=== PATIENT | male | born 1965 | race Caucasian/White ===

== ENCOUNTER 2017-06-19 09:31 | Day surgery (SDC) | payer BC ==
[2017-06-19] MEDS ORDERED: NS 1,000 ML IV (10:30)
[2017-06-19] MEDS ORDERED: PROPOFOL 200 MG/20 ML VIAL As Ordered ×2 (10:48)
== END 2017-06-19 12:01 | disposition home or self-care (01) ==
LOC: M OPP 09:31
DX: Z12.11 Encounter for screening for malignant neoplasm of colon (principal); Z86.010 Personal history of colon polyps; D12.5 Benign neoplasm of sigmoid colon; D12.3 Benign neoplasm of transverse colon; D12.0 Benign neoplasm of cecum; K64.8 Other hemorrhoids; I10 Essential (primary) hypertension; M19.90 Unspecified osteoarthritis, unspecified site; Z91.010 Allergy to peanuts; Z79.899 Other long term (current) drug therapy; Z80.8 Family history of malignant neoplasm of other organs or systems; Z80.1 Family history of malignant neoplasm of trachea, bronchus and lung; Z80.52 Family history of malignant neoplasm of bladder
CPT/HCPCS: 45385

== ENCOUNTER → 2020-09-04 | Outpatient (CLI) | payer BC ==
[~2020-09-04] MED LIST: ATOR1TAB21; LISI10TA15; LISI10TA15 PO; LISI10TA22 PO; PRIL40CA PO
== END ==
LOC: M LABSMTC 09:35
PROVIDERS: ATTEND Anesthesiology
DX: Z01.812 Encounter for preprocedural laboratory examination (principal); Z20.828 Contact with and (suspected) exposure to other viral communicable diseases

== ENCOUNTER 2020-09-08 11:46 | Day surgery (SDC) | payer BC ==
[~2020-09-08] VITALS: Ht 172.7 cm; Wt 112.5 kg
[~2020-09-08 11:46] MED LIST changes: +NS 1,000 ML IV ONE
[2020-09-08] MEDS ORDERED: LIDOCAINE 2% 100MG/5ML SDV (FOR ANES.) As Ordered ONE (12:51)
[2020-09-08] MEDS ORDERED: propofoL 200 MG/20 ML VIAL As Ordered ONE (12:51)
--- NOTE | 2020-09-08 13:17 | ROOR ---
Patient Name: Yandel Gómez Procedure Date: 09/08/2020 12:53 PM Date of : 1965 Age: 55 Room: [facility] Gender: Male Note Status: Finalized Procedure: Colonoscopy Indications: High risk colon cancer surveillance: Personal history of colonic polyps, Last colonoscopy: June 2017 Providers: Eladio Horton MD Referring MD: ISRAEL PALMER MD Requesting Provider: Medicines: Monitored Anesthesia Care Complications: No immediate complications. Procedure: Pre-Anesthesia Assessment: - The heart rate, respiratory rate, oxygen saturations, blood pressure, adequacy of pulmonary ventilation, and response to care were monitored throughout the procedure. The Colonoscope was introduced through the anus and advanced to the terminal ileum, with identification of the appendiceal orifice and IC valve. The colonoscopy was performed without difficulty. The patient tolerated the procedure well. The quality of the bowel preparation was fair. Findings: The perianal and digital rectal examinations were normal. Retroflexion in the right colon was performed. The colon appeared normal. Impression: - Preparation of the colon was fair. - The entire examined colon is normal. - No specimens collected. Recommendation: - Repeat colonoscopy in 5 years for surveillance. Procedure Code(s): --- Professional --- 39387, Colonoscopy, flexible; diagnostic, including collection of specimen(s) by brushing or washing, when performed (separate procedure) Diagnosis Code(s): --- Professional --- Z86.010, Personal history of colonic polyps CPT copyright 2019 [employer]. All rights reserved. The codes documented in this report are preliminary and upon mine patrol review may be revised to meet current compliance requirements. Eladio Horton MD Eladio Horton MD 09/08/2020 1:17:09 PM Electronically signed by Eladio Horton MD Number of Addenda: 0 Note Initiated On: 09/08/2020 12:53 PM Estimated Blood Loss: Estimated blood loss: none.
[2020-09-08 13:41] VITALS: BP 131/86
== END 2020-09-08 13:41 | disposition home or self-care (01) ==
LOC: M OPP 11:46
PROVIDERS: ATTEND Internal Medicine Gastroenterology
DX: Z12.11 Encounter for screening for malignant neoplasm of colon (principal); Z86.010 Personal history of colon polyps; Z79.899 Other long term (current) drug therapy; Z91.018 Allergy to other foods; Z80.0 Family history of malignant neoplasm of digestive organs; Z80.1 Family history of malignant neoplasm of trachea, bronchus and lung; Z80.52 Family history of malignant neoplasm of bladder

== ENCOUNTER 2023-02-04 01:26 | Inpatient (IN) | payer BC ==
[2023-02-04] VITALS (17 sets, daily range): BP systolic 113–182; BP diastolic 72–111; TEMP 97.1–102.6; O2SAT 91–98
[~2023-02-04] VITALS: Ht 172.7 cm; Wt 109.6 kg
[~2023-02-04 01:26] MED LIST changes: -LISI10TA15; -LISI10TA15 PO; +LISI10TA24; +LISI10TA24 PO; -NS 1,000 ML IV ONE
[2023-02-04 02:06] LABS: BASO % 0.2 % (0.0-1.0); HEMATOCRIT 51.3 % (42.0-52.0); HEMOGLOBIN 18.3 g/dl (13.5-17.5); LYMPH # 0.4 10^3/uL (1.5-5.0); LYMPH % 3.3 % (24.0-44.0); MEAN CORPUSCULAR HEMOGLOBIN 30.8 pg (27.0-33.0); MEAN CORPUSCULAR HGB CONC 35.7 g/dl (32.0-36.5); MEAN CORPUSCULAR VOLUME 86.2 fl (80.0-96.0); MONO # 0.1 10^3/uL (0.0-0.8); MONO % 0.9 % (2.0-8.0); NEUTROPHILS # 11.2 10^3/uL (1.5-8.5); NEUTROPHILS % 95.1 % (36.0-66.0); PLATELET COUNT, AUTOMATED 178 10^3/uL (150-450); RED BLOOD COUNT 5.95 10^6/uL (4.30-6.10); WHITE BLOOD COUNT 11.8 10^3/uL (4.0-10.0)
[2023-02-04 02:21] LABS: INR 1.31; PROTHROMBIN TIME 15.9 SECONDS (12.5-14.5)
[2023-02-04 02:29] LABS: ALBUMIN 3.6 G/DL (3.2-5.2); ALKALINE PHOSPHATASE 83 U/L (46-116); ALT/SGPT 42 U/L (7.0-40); AST/SGOT 29 U/L (<34); BILIRUBIN,DIRECT 0.8 MG/DL (<0.4); BILIRUBIN,TOTAL 1.7 MG/DL (0.3-1.2); BLOOD UREA NITROGEN 15 MG/DL (9-23); CALCIUM LEVEL 8.9 MG/DL (8.5-10.1); CARBON DIOXIDE LEVEL 18 MMOL/L (20-31); CHLORIDE LEVEL 102 MMOL/L (98-107); GLOMERULAR FILTRATION RATE > 60.0 (>56); GLUCOSE, FASTING 161 MG/DL (60-100); POTASSIUM SERUM 3.2 MMOL/L (3.5-5.1); SODIUM LEVEL 136 MMOL/L (136-145); TOTAL PROTEIN 6.4 G/DL (5.7-8.2)
[2023-02-04] MEDS ORDERED: PIPERACILLIN/TAZOBACTAM SOD 4.5 GM in D5W MINI-BAG PLUS 50 ML IV ONE (02:30)
[2023-02-04] MEDS ORDERED: ACETAMINOPHEN TAB 650MG DOSE (2X325MG) PO ONE (02:30)
[2023-02-04] MEDS ORDERED: NS 1,000 ML IV ONE ×2 (02:30→16:40)
[2023-02-04] MEDS ORDERED: POTASSIUM CHLORIDE 10MEQ SR TABLET PO ONE ×2 (02:35→10:00)
[2023-02-04] MEDS ORDERED: NS IV ONE (02:35)
[2023-02-04] MEDS ORDERED: ISOVUE-370 76% 100ML VIAL As Ordered ONE (02:49)
[2023-02-04 02:57] LABS: APPEARANCE, URINE CLEAR (CLEAR); BACTERIA, URINE AUTO NEGATIVE (NEGATIVE); BILIRUBIN, URINE AUTO NEGATIVE (NEGATIVE); BLOOD, URINE BLOOD NEGATIVE (NEGATIVE); COLOR, URINE YELLOW (YELLOW); GLUCOSE, URINE (UA) AUTO 3+ mg/dL (NEGATIVE); KETONE, URINE AUTO TRACE mg/dL (NEGATIVE); LEUKOCYTE ESTERASE, URINE AUTO NEGATIVE (NEGATIVE); NITRITE, URINE AUTO NEGATIVE (NEGATIVE); PROTEIN, URINE AUTO NEGATIVE (NEGATIVE); RBC, URINE AUTO 0 /HPF (0-3); SPECIFIC GRAVITY URINE AUTO 1.027 (1.002-1.035); SQUAMOUS EPITHELIAL CELL UR AU 0 /HPF (0-6); UROBILINOGEN, URINE AUTO 0.2 mg/dL (0.0-2.0); WBC, URINE AUTO 1 /HPF (0-3)
[2023-02-04] MEDS ORDERED: CIPROFLOXACIN 400 MG in IV 1 EA IV ONE (03:45)
[2023-02-04] MEDS ORDERED: metroNIDAZOLE 500 MG in IV 1 EA IV ONE (03:45)
[2023-02-04] MEDS ORDERED: NS 1,000 ML IV SCH (04:50)
[2023-02-04] MEDS ORDERED: DEXTROSE 50% 50ML SYRINGE IV PRN (05:15)
[2023-02-04] MEDS ORDERED: GLUCAGON INJ 1MG VIAL SC PRN (05:15)
[2023-02-04] MEDS ORDERED: ONDANSETRON 4MG 2ML VIAL IV PRN ×2 (05:15→19:35)
[2023-02-04] MEDS ORDERED: ACETAMINOPHEN 650MG SUPP PR PRN (05:15)
[2023-02-04] MEDS ORDERED: GLUCOSE 4GM CHEW TABLET PO PRN (05:15)
[2023-02-04] MEDS ORDERED: ONDA-84 PO (05:37)
[2023-02-04] MEDS ORDERED: OMEP-173 PO (05:37)
[2023-02-04] MEDS ORDERED: JARD1TAB3 PO (05:37)
[2023-02-04] MEDS ORDERED: LISI10TA24 PO (05:37)
[2023-02-04] MEDS ORDERED: ATOR1TAB21 PO (05:37)
[2023-02-04] MEDS ORDERED: METF500T13 PO (05:37)
[2023-02-04] MEDS ORDERED: AMLO1TAB24 PO (05:37)
[2023-02-04] MEDS ORDERED: HOME MED LIST COMPLETE! XX SCH (05:40)
[2023-02-04] MEDS ORDERED: INSULIN LISPRO (NovoLOG) PER UNIT SC SCH (06:00)
[2023-02-04] MEDS: NS 1,000 ML IV SCH ×3 (06:17→23:16)
[2023-02-04 06:45] LABS: MAGNESIUM LEVEL 1.6 MG/DL (1.8-2.4)
[2023-02-04 07:07] LABS: ALKALINE PHOSPHATASE 64 U/L (46-116); ALT/SGPT 37 U/L (7.0-40); AST/SGOT 32 U/L (<34); BILIRUBIN,TOTAL 1.9 MG/DL (0.3-1.2); BLOOD UREA NITROGEN 16 MG/DL (9-23); CALCIUM LEVEL 8.3 MG/DL (8.5-10.1); CARBON DIOXIDE LEVEL 21 MMOL/L (20-31); CHLORIDE LEVEL 102 MMOL/L (98-107); CREATININE FOR GFR 1.14 MG/DL (0.70-1.30); GLOMERULAR FILTRATION RATE > 60.0 (>56); GLUCOSE, FASTING 160 MG/DL (60-100); POTASSIUM SERUM 3.3 MMOL/L (3.5-5.1); SODIUM LEVEL 136 MMOL/L (136-145); TOTAL PROTEIN 5.5 G/DL (5.7-8.2)
[2023-02-04 07:55] LABS: MEAN CORPUSCULAR HEMOGLOBIN 30.9 pg (27.0-33.0); MEAN CORPUSCULAR HGB CONC 35.1 g/dl (32.0-36.5); PLATELET COUNT, AUTOMATED 150 10^3/uL (150-450); RED BLOOD COUNT 5.24 10^6/uL (4.30-6.10); WHITE BLOOD COUNT 20.2 10^3/uL (4.0-10.0)
[2023-02-04 07:56] LABS: HEMATOCRIT 46.1 % (42.0-52.0); HEMOGLOBIN 16.2 g/dl (13.5-17.5)
[2023-02-04] MEDS: MAG SULF 1GM/100ML (MAG RUN) 1 GM in IV 1 EA IV SCH ×2 (08:17→09:21)
[2023-02-04] MEDS ORDERED: PIPERACILLIN/TAZOBACTAM SOD 3.375 GM in D5W MINI-BAG PLUS 50 ML IV SCH (11:00)
[2023-02-04] MEDS: amLODIPine 5 MG TAB PO SCH (11:13)
[2023-02-04] MEDS: INSULIN LISPRO (NovoLOG) PER UNIT SC SCH ×3 (11:54→20:44)
[2023-02-04] MEDS: ACETAMINOPHEN TAB 650MG DOSE (2X325MG) PO PRN (12:19)
[2023-02-04] MEDS ORDERED: HYDROMORPHONE HCL 0.5 MG/ 0.5 ML SYRINGE IV PRN ×3 (12:25→19:35)
[2023-02-04] MEDS ORDERED: metroNIDAZOLE 500 MG in IV 1 EA IV SCH (13:00)
[2023-02-04] MEDS ORDERED: **hydrALAZINE HCL** 25 MG TAB PO PRN (14:45)
[2023-02-04] MEDS ORDERED: ACETAMINOPHEN *IV* 1,000 MG in IV 1 EA IV STA (15:14)
[2023-02-04] MEDS ORDERED: CIPROFLOXACIN 400 MG in IV 1 EA IV SCH (16:00)
[2023-02-04 16:17] LABS: BLOOD UREA NITROGEN 15 MG/DL (9-23); CALCIUM LEVEL 8.4 MG/DL (8.5-10.1); CARBON DIOXIDE LEVEL 19 MMOL/L (20-31); CHLORIDE LEVEL 103 MMOL/L (98-107); CREATININE FOR GFR 0.95 MG/DL (0.70-1.30); GLOMERULAR FILTRATION RATE > 60.0 (>56); GLUCOSE, FASTING 127 MG/DL (60-100); POTASSIUM SERUM 3.9 MMOL/L (3.5-5.1); SODIUM LEVEL 136 MMOL/L (136-145)
[2023-02-04] MEDS ORDERED: LR 1,000 ML IV ONE (16:45)
[2023-02-04 17:08] LABS: ALBUMIN 3.1 G/DL (3.2-5.2); ALKALINE PHOSPHATASE 74 U/L (46-116); ALT/SGPT 72 U/L (7.0-40); AST/SGOT 64 U/L (<34); BILIRUBIN,DIRECT 0.8 MG/DL (<0.4); BILIRUBIN,TOTAL 1.6 MG/DL (0.3-1.2)
[2023-02-04] MEDS: PIPERACILLIN/TAZOBACTAM SOD 4.5 GM in D5W MINI-BAG PLUS 50 ML IV SCH ×2 (17:18→22:40)
[2023-02-04] MEDS ORDERED: INDOCYANINE GREEN 25MG VIAL (IC-GREEN) As Ordered ONE (19:20)
[2023-02-04] MEDS ORDERED: INDOCYANINE GREEN 25MG VIAL (IC-GREEN) ONE (19:20)
[2023-02-04] MEDS ORDERED: LR 1,000 ML IV SCH (19:35)
[2023-02-04] MEDS ORDERED: INSULIN LISPRO (NovoLOG) PER UNIT SC PRN (19:35)
[2023-02-04] MEDS ORDERED: fentaNYL 100 MCG/2 ML INJECTION IV PRN (19:35)
[2023-02-04] MEDS ORDERED: ENOXAPARIN 40MG/0.4ML SYRINGE (J1650 PER 10MG) SC SCH (21:00)
[2023-02-04] MEDS ORDERED: SUGAMMADEX SODIUM 500 MG/5 ML VIAL (BRIDION) As Ordered ONE (21:14)
[2023-02-04] MEDS ORDERED: ONDANSETRON 4MG 2ML VIAL As Ordered ONE (21:14)
[2023-02-04] MEDS ORDERED: KETOROLAC 60MG 2ML VIAL As Ordered ONE (21:14)
[2023-02-04] MEDS ORDERED: fentaNYL 250 MCG/5 ML INJECTION As Ordered ONE (21:14)
[2023-02-04] MEDS ORDERED: LIDOCAINE 2% 100MG/5ML SDV (FOR ANES.) As Ordered ONE (21:14)
[2023-02-04] MEDS ORDERED: ROCURONIUM BROMIDE 50MG/5ML VIAL As Ordered ONE (21:14)
[2023-02-04] MEDS ORDERED: propofoL 200 MG/20 ML VIAL As Ordered ONE (21:14)
[2023-02-04] MEDS ORDERED: PHENYLephrine 500MCG 5ML (100MCG/ML) SYRINGE As Ordered ONE ×2 (21:14→21:17)
[2023-02-04] MEDS ORDERED: MIDAZOLAM INJ 2MG/2ML VIAL As Ordered ONE (21:14)
[2023-02-04] MEDS ORDERED: ACETAMINOPHEN 1000MG 100ML IV BAG As Ordered ONE (21:14)
[2023-02-05] VITALS (8 sets, daily range): BP systolic 128–160; BP diastolic 75–93; TEMP 97.1–99.6; O2SAT 94–100
[2023-02-05] MEDS: PIPERACILLIN/TAZOBACTAM SOD 4.5 GM in D5W MINI-BAG PLUS 50 ML IV SCH ×4 (04:34→22:06)
[2023-02-05 05:48] LABS: HEMATOCRIT 47.3 % (42.0-52.0); HEMOGLOBIN 15.9 g/dl (13.5-17.5); MEAN CORPUSCULAR HEMOGLOBIN 30.1 pg (27.0-33.0); MEAN CORPUSCULAR HGB CONC 33.6 g/dl (32.0-36.5); MEAN CORPUSCULAR VOLUME 89.4 fl (80.0-96.0); PLATELET COUNT, AUTOMATED 129 10^3/uL (150-450); RED BLOOD COUNT 5.29 10^6/uL (4.30-6.10); WHITE BLOOD COUNT 12.1 10^3/uL (4.0-10.0)
[2023-02-05] MEDS: INSULIN LISPRO (NovoLOG) PER UNIT SC SCH ×4 (07:30→20:13)
[2023-02-05 07:56] LABS: ALBUMIN 2.6 G/DL (3.2-5.2); ALKALINE PHOSPHATASE 69 U/L (46-116); ALT/SGPT 65 U/L (7.0-40); AST/SGOT 48 U/L (<34); BLOOD UREA NITROGEN 18 MG/DL (9-23); CARBON DIOXIDE LEVEL 17 MMOL/L (20-31); CHLORIDE LEVEL 108 MMOL/L (98-107); CREATININE FOR GFR 0.75 MG/DL (0.70-1.30); GLOMERULAR FILTRATION RATE > 60.0 (>56); GLUCOSE, FASTING 127 MG/DL (60-100); POTASSIUM SERUM 4.2 MMOL/L (3.5-5.1); SODIUM LEVEL 140 MMOL/L (136-145); TOTAL PROTEIN 5.4 G/DL (5.7-8.2)
[2023-02-05] MEDS: amLODIPine 5 MG TAB PO SCH (08:18)
[2023-02-05] MEDS: NS 1,000 ML IV SCH (11:22)
[2023-02-05] MEDS: ENOXAPARIN 40MG/0.4ML SYRINGE (J1650 PER 10MG) SC SCH (20:13)
[2023-02-05] MEDS: ACETAMINOPHEN TAB 650MG DOSE (2X325MG) PO PRN (22:06)
[2023-02-06] VITALS (7 sets, daily range): BP systolic 130–170; BP diastolic 72–91; TEMP 98–100.4; O2SAT 93–98
[2023-02-06] MEDS: PIPERACILLIN/TAZOBACTAM SOD 4.5 GM in D5W MINI-BAG PLUS 50 ML IV SCH ×4 (04:10→23:06)
[2023-02-06 04:37] LABS: HEMOGLOBIN 15.1 g/dl (13.5-17.5); MEAN CORPUSCULAR HEMOGLOBIN 31.1 pg (27.0-33.0); MEAN CORPUSCULAR HGB CONC 35.1 g/dl (32.0-36.5); MEAN CORPUSCULAR VOLUME 88.5 fl (80.0-96.0); PLATELET COUNT, AUTOMATED 142 10^3/uL (150-450); RED BLOOD COUNT 4.86 10^6/uL (4.30-6.10); WHITE BLOOD COUNT 8.5 10^3/uL (4.0-10.0)
[2023-02-06 05:21] LABS: ALBUMIN 2.3 G/DL (3.2-5.2); ALKALINE PHOSPHATASE 68 U/L (46-116); ALT/SGPT 46 U/L (7.0-40); AST/SGOT 39 U/L (<34); BILIRUBIN,TOTAL 0.6 MG/DL (0.3-1.2); BLOOD UREA NITROGEN 25 MG/DL (9-23); CALCIUM LEVEL 7.8 MG/DL (8.5-10.1); CARBON DIOXIDE LEVEL 20 MMOL/L (20-31); CHLORIDE LEVEL 108 MMOL/L (98-107); CREATININE FOR GFR 0.78 MG/DL (0.70-1.30); GLOMERULAR FILTRATION RATE > 60.0 (>56); GLUCOSE, FASTING 111 MG/DL (60-100); POTASSIUM SERUM 3.8 MMOL/L (3.5-5.1); SODIUM LEVEL 139 MMOL/L (136-145)
[2023-02-06] MEDS: INSULIN LISPRO (NovoLOG) PER UNIT SC SCH ×4 (07:30→17:08)
[2023-02-06] MEDS: ACETAMINOPHEN TAB 650MG DOSE (2X325MG) PO PRN (08:30)
[2023-02-06] MEDS: amLODIPine 5 MG TAB PO SCH (08:31)
[2023-02-06] MEDS ORDERED: FUROSEMIDE 20MG/2ML VIAL IV ONE (09:25)
[2023-02-06] MEDS ORDERED: PERCOCET 5MG/325MG TAB PO PRN ×2 (09:25)
[2023-02-06] MEDS: ENOXAPARIN 40MG/0.4ML SYRINGE (J1650 PER 10MG) SC SCH (19:59)
[2023-02-07 02:00] VITALS: BP 134/77; TEMP 98.8; O2SAT 95
[2023-02-07 05:27] LABS: HEMATOCRIT 44.6 % (42.0-52.0); HEMOGLOBIN 15.3 g/dl (13.5-17.5); MEAN CORPUSCULAR HEMOGLOBIN 29.8 pg (27.0-33.0); MEAN CORPUSCULAR HGB CONC 34.3 g/dl (32.0-36.5); MEAN CORPUSCULAR VOLUME 86.8 fl (80.0-96.0); PLATELET COUNT, AUTOMATED 153 10^3/uL (150-450); RED BLOOD COUNT 5.14 10^6/uL (4.30-6.10); WHITE BLOOD COUNT 5.7 10^3/uL (4.0-10.0)
[2023-02-07] MEDS: PIPERACILLIN/TAZOBACTAM SOD 4.5 GM in D5W MINI-BAG PLUS 50 ML IV SCH ×2 (05:28→10:39)
[2023-02-07 05:50] LABS: ALBUMIN 2.2 G/DL (3.2-5.2); ALKALINE PHOSPHATASE 63 U/L (46-116); ALT/SGPT 35 U/L (7.0-40); AST/SGOT 30 U/L (<34); BILIRUBIN,TOTAL 0.5 MG/DL (0.3-1.2); BLOOD UREA NITROGEN 23 MG/DL (9-23); CALCIUM LEVEL 7.4 MG/DL (8.5-10.1); CARBON DIOXIDE LEVEL 20 MMOL/L (20-31); CHLORIDE LEVEL 107 MMOL/L (98-107); CREATININE FOR GFR 0.72 MG/DL (0.70-1.30); GLOMERULAR FILTRATION RATE > 60.0 (>56); GLUCOSE, FASTING 112 MG/DL (60-100); POTASSIUM SERUM 3.2 MMOL/L (3.5-5.1); SODIUM LEVEL 139 MMOL/L (136-145); TOTAL PROTEIN 5.1 G/DL (5.7-8.2)
[2023-02-07 06:00] VITALS: BP 140/92; TEMP 97.5; O2SAT 96
[2023-02-07] MEDS ORDERED: POTASSIUM CHLORIDE 10MEQ SR TABLET PO ONE (07:05)
[2023-02-07] MEDS: INSULIN LISPRO (NovoLOG) PER UNIT SC SCH ×2 (07:53→11:41)
[2023-02-07 08:01] VITALS: BP 153/93
[2023-02-07] MEDS: amLODIPine 5 MG TAB PO SCH (08:01)
[2023-02-07] MEDS ORDERED: CIPR-249 PO ×2 (08:38→08:57)
[2023-02-07] MEDS ORDERED: METR-265 PO ×3 (08:38→09:54)
[2023-02-07] MEDS ORDERED: PROB250C PO (09:54)
[2023-02-07] MEDS ORDERED: OXYC1TAB23 PO (09:54)
[2023-02-07 10:00] VITALS: BP 144/95; TEMP 98.1; O2SAT 95
[2023-02-07] MEDS ORDERED: INFLUENZA QUADRIVALENT PF VACCINE 0.5ML SYRINGE IM.IMMUN ONE (10:00)
== END 2023-02-07 12:46 | disposition home or self-care (01) | DRG 720 ==
LOC: EDBD 01:26 → M ED 01:26 → M ED INP 04:08 → M ICU 05:05 → M MSPAV 02-06 20:35
PROVIDERS: ADMIT Internal Medicine; ATTEND Internal Medicine
PROC: 0F9440Z Drainage of Gallbladder with Drainage Device, Percutaneous Endoscopic Approach (ICD-10-PCS; principal; 2023-02-04 20:00)
DX: A41.9 Sepsis, unspecified organism (principal); K80.00 Calculus of gallbladder with acute cholecystitis without obstruction; E11.9 Type 2 diabetes mellitus without complications; E66.01 Morbid (severe) obesity due to excess calories; I10 Essential (primary) hypertension; E78.5 Hyperlipidemia, unspecified; E87.20 Acidosis, unspecified; E83.42 Hypomagnesemia; R74.01 Elevation of levels of liver transaminase levels; E87.6 Hypokalemia; Z79.84 Long term (current) use of oral hypoglycemic drugs; Z91.018 Allergy to other foods; Z79.899 Other long term (current) drug therapy; Z20.822 Contact with and (suspected) exposure to COVID-19; Z68.37 Body mass index [BMI] 37.0-37.9, adult

== ENCOUNTER → 2023-04-01 | Outpatient (CLI) | payer BC ==
[~2023-04-01] MED LIST changes: +AMLO1TAB24 PO; +ATOR1TAB21 PO; +CIPR-249 PO; +ISOVUE-370 76% 100ML VIAL As Ordered ONE; +JARD1TAB3 PO; +METF500T13 PO; +METR-265 PO; +OMEP-173 PO; +ONDA-84 PO; +OXYC1TAB23 PO; +PROB250C PO
== END ==
LOC: M RADPRO 07:41
PROVIDERS: ATTEND Surgery
DX: K81.9 Cholecystitis, unspecified (principal); Z85.828 Personal history of other malignant neoplasm of skin; Z96.0 Presence of urogenital implants
CPT/HCPCS: 47531; Q9967

== ENCOUNTER 2023-04-19 09:06 | Inpatient (IN) | payer BC ==
[2023-04-18] MEDS: NS 1,000 ML IV SCH (22:30)
[~2023-04-19] VITALS: Ht 172.7 cm; Wt 109.5 kg
[~2023-04-19 09:06] MED LIST changes: -ISOVUE-370 76% 100ML VIAL As Ordered ONE
[2023-04-19] MEDS ORDERED: LISI20TA35 PO (09:56)
[2023-04-19 10:02] LABS: BASO # 0.1 10^3/uL (0.0-0.2); BASO % 0.3 % (0.0-1.0); EOS # 0.1 10^3/uL (0.0-0.5); EOS % 0.5 % (0.0-3.0); HEMATOCRIT 51.8 % (42.0-52.0); LYMPH # 0.9 10^3/uL (1.5-5.0); LYMPH % 4.4 % (24.0-44.0); MEAN CORPUSCULAR HEMOGLOBIN 30.5 pg (27.0-33.0); MEAN CORPUSCULAR HGB CONC 34.7 g/dl (32.0-36.5); MEAN CORPUSCULAR VOLUME 87.6 fl (80.0-96.0); MONO # 0.9 10^3/uL (0.0-0.8); MONO % 4.6 % (2.0-8.0); NEUTROPHILS # 17.4 10^3/uL (1.5-8.5); NEUTROPHILS % 89.6 % (36.0-66.0); PLATELET COUNT, AUTOMATED 290 10^3/uL (150-450); RED BLOOD COUNT 5.91 10^6/uL (4.30-6.10); WHITE BLOOD COUNT 19.3 10^3/uL (4.0-10.0)
[2023-04-19 10:31] LABS: ALBUMIN 3.7 G/DL (3.2-5.2); ALKALINE PHOSPHATASE 92 U/L (46-116); ALT/SGPT 31 U/L (7.0-40); AST/SGOT 13 U/L (<34); BILIRUBIN,DIRECT 0.5 MG/DL (<0.4); BILIRUBIN,TOTAL 1.2 MG/DL (0.3-1.2); BLOOD UREA NITROGEN 13 MG/DL (9-23); CALCIUM LEVEL 9.3 MG/DL (8.5-10.1); CARBON DIOXIDE LEVEL 25 MMOL/L (20-31); CHLORIDE LEVEL 100 MMOL/L (98-107); CREATININE FOR GFR 0.86 MG/DL (0.70-1.30); GLOMERULAR FILTRATION RATE > 60.0 (>56); GLUCOSE, FASTING 208 MG/DL (60-100); POTASSIUM SERUM 4.4 MMOL/L (3.5-5.1); SODIUM LEVEL 133 MMOL/L (136-145); TOTAL PROTEIN 7.1 G/DL (5.7-8.2)
[2023-04-19 10:34] LABS: LIPASE 36 U/L (12-53)
[2023-04-19] MEDS: ONDANSETRON 4MG 2ML VIAL IV ONE (10:39)
[2023-04-19] MEDS: MORPHINE 4 MG/ML 1ML VIAL IV PRN (10:39)
[2023-04-19] MEDS: amLODIPine 5 MG TAB PO ONE (10:58)
[2023-04-19] MEDS: hydroCHLOROthiazide 12.5 MG CAPSULE PO ONE (10:58)
[2023-04-19] MEDS: PIPERACILLIN/TAZOBACTAM SOD 4.5 GM in D5W MINI-BAG PLUS 50 ML IV ONE (11:16)
[2023-04-19] MEDS ORDERED: MED REC IN PROGRESS XX SCH (12:05)
[2023-04-19] MEDS ORDERED: OXYC1TAB23 PO (12:16)
[2023-04-19] MEDS ORDERED: PROB250C PO (12:16)
[2023-04-19] MEDS ORDERED: HOME MED LIST COMPLETE! XX SCH (12:20)
[2023-04-19] MEDS ORDERED: ONDANSETRON 4MG 2ML VIAL IV PRN (13:30)
[2023-04-19] MEDS ORDERED: NS 1,000 ML IV SCH (13:30)
[2023-04-19] MEDS ORDERED: MORPHINE 4 MG/ML 1ML VIAL IV PRN (13:30)
[2023-04-19] MEDS ORDERED: GLUCAGON INJ 1MG VIAL SC PRN (13:45)
[2023-04-19] MEDS ORDERED: DEXTROSE 50% 50ML SYRINGE IV PRN (13:45)
[2023-04-19] MEDS ORDERED: GLUCOSE 4GM CHEW TABLET PO PRN (13:45)
[2023-04-19] MEDS: NS 1,000 ML IV SCH (14:35)
[2023-04-19] MEDS: PANTOPRAZOLE 40MG VIAL IV SCH (14:35)
[2023-04-19] MEDS: ACETAMINOPHEN TAB 650MG DOSE (2X325MG) PO PRN (15:27)
[2023-04-19] MEDS ORDERED: INSULIN LISPRO (NovoLOG) PER UNIT SC SCH ×4 (15:30→21:00)
[2023-04-19] MEDS: MORPHINE 2 MG/ML 1ML VIAL IV PRN (15:48)
[2023-04-19 15:50] VITALS: BP 102/58; TEMP 99.7; O2SAT 98
[2023-04-19] MEDS: PIPERACILLIN/TAZOBACTAM SOD 4.5 GM in D5W MINI-BAG PLUS 50 ML IV SCH (17:38)
[2023-04-19] MEDS: INSULIN LISPRO (NovoLOG) PER UNIT SC SCH (18:00)
[2023-04-19 20:08] VITALS: BP 124/58; TEMP 98.4; O2SAT 95
[2023-04-19 23:47] VITALS: BP 124/77; TEMP 100.8; O2SAT 91
[2023-04-20] VITALS (12 sets, daily range): BP systolic 111–142; BP diastolic 62–83; TEMP 96–98.8; O2SAT 89–96
[2023-04-20 06:13] LABS: BASO # 0.1 10^3/uL (0.0-0.2); BASO % 0.4 % (0.0-1.0); EOS % 0.3 % (0.0-3.0); HEMATOCRIT 42.5 % (42.0-52.0); MEAN CORPUSCULAR HEMOGLOBIN 30.7 pg (27.0-33.0); MEAN CORPUSCULAR HGB CONC 34.1 g/dl (32.0-36.5); MEAN CORPUSCULAR VOLUME 89.9 fl (80.0-96.0); MONO # 0.8 10^3/uL (0.0-0.8); NEUTROPHILS # 9.3 10^3/uL (1.5-8.5); NEUTROPHILS % 82.9 % (36.0-66.0); RED BLOOD COUNT 4.73 10^6/uL (4.30-6.10); WHITE BLOOD COUNT 11.2 10^3/uL (4.0-10.0)
[2023-04-20 06:16] LABS: HEMOGLOBIN 14.5 g/dl (13.5-17.5); PLATELET COUNT, AUTOMATED 173 10^3/uL (150-450)
[2023-04-20 06:24] LABS: ALBUMIN 2.6 G/DL (3.2-5.2); ALKALINE PHOSPHATASE 66 U/L (46-116); ALT/SGPT 22 U/L (7.0-40); AST/SGOT 13 U/L (<34); BILIRUBIN,TOTAL 1.3 MG/DL (0.3-1.2); BLOOD UREA NITROGEN 14 MG/DL (9-23); CALCIUM LEVEL 8.2 MG/DL (8.5-10.1); CARBON DIOXIDE LEVEL 27 MMOL/L (20-31); CHLORIDE LEVEL 103 MMOL/L (98-107); CREATININE FOR GFR 1.03 MG/DL (0.70-1.30); GLOMERULAR FILTRATION RATE > 60.0 (>56); GLUCOSE, FASTING 116 MG/DL (60-100); SODIUM LEVEL 136 MMOL/L (136-145); TOTAL PROTEIN 5.5 G/DL (5.7-8.2)
[2023-04-20] MEDS: ATORVASTATIN 20 MG TAB PO SCH (08:01)
[2023-04-20] MEDS ORDERED: amLODIPine 5 MG TAB PO SCH (09:00)
[2023-04-20] MEDS ORDERED: hydroCHLOROthiazide 12.5 MG CAPSULE PO SCH (09:00)
[2023-04-20] MEDS ORDERED: MIDAZOLAM INJ 2MG/2ML VIAL As Ordered ONE (09:24)
[2023-04-20] MEDS ORDERED: LIDOCAINE 2% 100MG/5ML SDV (FOR ANES.) As Ordered ONE (09:24)
[2023-04-20] MEDS ORDERED: INDOCYANINE GREEN 25MG VIAL (IC-GREEN) As Ordered ONE (09:24)
[2023-04-20] MEDS ORDERED: fentaNYL 100 MCG/2 ML INJECTION As Ordered ONE (09:24)
[2023-04-20] MEDS ORDERED: ROCURONIUM BROMIDE 50MG/5ML VIAL As Ordered ONE (09:24)
[2023-04-20] MEDS ORDERED: propofoL 200 MG/20 ML VIAL As Ordered ONE (09:24)
[2023-04-20] MEDS ORDERED: fentaNYL 100 MCG/2 ML INJECTION IV PRN ×2 (10:10→15:30)
[2023-04-20] MEDS ORDERED: METOCLOPRAMIDE INJ 10MG/2ML VIAL IV PRN ×2 (10:10→15:30)
[2023-04-20] MEDS ORDERED: ONDANSETRON 4MG 2ML VIAL IV PRN ×3 (10:10→16:05)
[2023-04-20] MEDS ORDERED: MEPERIDINE 25 MG/ML 1ML VIAL IV PRN ×2 (10:10→15:30)
[2023-04-20] MEDS ORDERED: oxyCODONE 5MG TAB PO PRN (10:10)
[2023-04-20] MEDS ORDERED: diphenhydrAMINE 50MG/ML VIAL IV PRN ×3 (10:10→16:05)
[2023-04-20] MEDS ORDERED: HYDROMORPHONE HCL 0.5 MG/ 0.5 ML SYRINGE IV PRN ×2 (10:10→15:30)
[2023-04-20] MEDS ORDERED: ONDANSETRON 4MG 2ML VIAL As Ordered ONE (10:19)
[2023-04-20] MEDS ORDERED: ACETAMINOPHEN 1000MG 100ML IV BAG As Ordered ONE (10:19)
[2023-04-20] MEDS ORDERED: KETOROLAC 60MG 2ML VIAL As Ordered ONE (10:19)
[2023-04-20] MEDS ORDERED: SUGAMMADEX SODIUM 500 MG/5 ML VIAL (BRIDION) As Ordered ONE (10:19)
[2023-04-20] MEDS ORDERED: ESMOLOL INJ 100MG/10ML VIAL As Ordered ONE (11:10)
[2023-04-20] MEDS: ISOVUE-300 61% 100ML VIAL As Ordered ONE (12:06)
[2023-04-20] MEDS ORDERED: LABETALOL 100MG/20ML VIAL As Ordered ONE (12:18)
[2023-04-20] MEDS ORDERED: HYDROmorphone HCL 2MG/ML 1ML VIAL As Ordered ONE (12:35)
[2023-04-20] MEDS ORDERED: PHENYLephrine 500MCG 5ML (100MCG/ML) SYRINGE As Ordered ONE (14:22)
[2023-04-20] MEDS ORDERED: MORPHINE 1MG/ML IN 0.9% NACL 100ML IV BAG IV PRN (16:05)
[2023-04-20] MEDS ORDERED: NALOXONE INJ 0.4MG/1ML VIAL IV PRN (16:05)
[2023-04-20] MEDS ORDERED: EPIDURAL/PCA KEYS XX PRN (16:05)
[2023-04-20 16:49] LABS: HEMATOCRIT 44.1 % (42.0-52.0); HEMOGLOBIN 15.1 g/dl (13.5-17.5); MEAN CORPUSCULAR HEMOGLOBIN 30.9 pg (27.0-33.0); MEAN CORPUSCULAR HGB CONC 34.2 g/dl (32.0-36.5); MEAN CORPUSCULAR VOLUME 90.4 fl (80.0-96.0); PLATELET COUNT, AUTOMATED 195 10^3/uL (150-450); RED BLOOD COUNT 4.88 10^6/uL (4.30-6.10); WHITE BLOOD COUNT 14.8 10^3/uL (4.0-10.0)
[2023-04-20] MEDS ORDERED: NS 1,000 ML IV SCH (17:00)
[2023-04-20 17:27] LABS: ALBUMIN 2.5 G/DL (3.2-5.2); ALKALINE PHOSPHATASE 74 U/L (46-116); ALT/SGPT 223 U/L (7.0-40); AST/SGOT 211 U/L (<34); BLOOD UREA NITROGEN 18 MG/DL (9-23); CARBON DIOXIDE LEVEL 22 MMOL/L (20-31); CHLORIDE LEVEL 106 MMOL/L (98-107); CREATININE FOR GFR 1.12 MG/DL (0.70-1.30); GLOMERULAR FILTRATION RATE > 60.0 (>56); GLUCOSE, FASTING 185 MG/DL (60-100); POTASSIUM SERUM 4.8 MMOL/L (3.5-5.1); SODIUM LEVEL 136 MMOL/L (136-145); TOTAL PROTEIN 5.3 G/DL (5.7-8.2)
[2023-04-20] MEDS: INSULIN LISPRO (NovoLOG) PER UNIT SC SCH (21:00)
[2023-04-21] VITALS (7 sets, daily range): BP systolic 138–160; BP diastolic 72–90; TEMP 97.5–99.8; O2SAT 93–98
[2023-04-21 05:42] LABS: BASO % 0.1 % (0.0-1.0); EOS % 0.1 % (0.0-3.0); HEMATOCRIT 41.2 % (42.0-52.0); HEMOGLOBIN 14.1 g/dl (13.5-17.5); LYMPH # 0.6 10^3/uL (1.5-5.0); LYMPH % 6.1 % (24.0-44.0); MEAN CORPUSCULAR HEMOGLOBIN 30.7 pg (27.0-33.0); MEAN CORPUSCULAR HGB CONC 34.2 g/dl (32.0-36.5); MEAN CORPUSCULAR VOLUME 89.6 fl (80.0-96.0); MONO # 0.5 10^3/uL (0.0-0.8); MONO % 4.9 % (2.0-8.0); NEUTROPHILS % 88.4 % (36.0-66.0); PLATELET COUNT, AUTOMATED 187 10^3/uL (150-450); WHITE BLOOD COUNT 10.2 10^3/uL (4.0-10.0)
[2023-04-21 06:05] LABS: ALBUMIN 2.2 G/DL (3.2-5.2); ALKALINE PHOSPHATASE 143 U/L (46-116); ALT/SGPT 446 U/L (7.0-40); AST/SGOT 454 U/L (<34); BILIRUBIN,TOTAL 5.3 MG/DL (0.3-1.2); BLOOD UREA NITROGEN 15 MG/DL (9-23); CALCIUM LEVEL 7.9 MG/DL (8.5-10.1); CARBON DIOXIDE LEVEL 24 MMOL/L (20-31); CHLORIDE LEVEL 102 MMOL/L (98-107); CREATININE FOR GFR 0.86 MG/DL (0.70-1.30); GLOMERULAR FILTRATION RATE > 60.0 (>56); GLUCOSE, FASTING 138 MG/DL (60-100); POTASSIUM SERUM 4.2 MMOL/L (3.5-5.1); SODIUM LEVEL 134 MMOL/L (136-145); TOTAL PROTEIN 5.3 G/DL (5.7-8.2)
[2023-04-21] MEDS: INSULIN LISPRO (NovoLOG) PER UNIT SC SCH (08:27)
[2023-04-21] MEDS: HYDROMORPHONE HCL 0.5 MG/ 0.5 ML SYRINGE IV PRN (16:10)
[2023-04-21] MEDS: HEPARIN SOD (PORCINE) 5000UNITS/ML 1ML VIAL/SYRINGE SQ SCH (16:14)
[2023-04-21] MEDS: amLODIPine 5 MG TAB PO SCH (16:46)
[2023-04-22] VITALS (18 sets, daily range): BP systolic 136–168; BP diastolic 78–90; TEMP 97.7–99.5; O2SAT 93–96
[2023-04-22 05:57] LABS: BASO % 0.1 % (0.0-1.0); EOS % 0.3 % (0.0-3.0); HEMATOCRIT 40.4 % (42.0-52.0); HEMOGLOBIN 13.8 g/dl (13.5-17.5); LYMPH # 0.6 10^3/uL (1.5-5.0); LYMPH % 8.5 % (24.0-44.0); MEAN CORPUSCULAR HEMOGLOBIN 30.8 pg (27.0-33.0); MEAN CORPUSCULAR HGB CONC 34.2 g/dl (32.0-36.5); MEAN CORPUSCULAR VOLUME 90.2 fl (80.0-96.0); MONO # 0.5 10^3/uL (0.0-0.8); MONO % 7.7 % (2.0-8.0); NEUTROPHILS # 5.7 10^3/uL (1.5-8.5); NEUTROPHILS % 82.8 % (36.0-66.0); PLATELET COUNT, AUTOMATED 195 10^3/uL (150-450); RED BLOOD COUNT 4.48 10^6/uL (4.30-6.10); WHITE BLOOD COUNT 6.9 10^3/uL (4.0-10.0)
[2023-04-22 06:19] LABS: ALBUMIN 2.1 G/DL (3.2-5.2); ALKALINE PHOSPHATASE 221 U/L (46-116); ALT/SGPT 561 U/L (7.0-40); AST/SGOT 462 U/L (<34); BILIRUBIN,TOTAL 6.3 MG/DL (0.3-1.2); BLOOD UREA NITROGEN 18 MG/DL (9-23); CARBON DIOXIDE LEVEL 25 MMOL/L (20-31); CHLORIDE LEVEL 101 MMOL/L (98-107); CREATININE FOR GFR 0.75 MG/DL (0.70-1.30); GLOMERULAR FILTRATION RATE > 60.0 (>56); GLUCOSE, FASTING 133 MG/DL (60-100); POTASSIUM SERUM 3.9 MMOL/L (3.5-5.1); SODIUM LEVEL 134 MMOL/L (136-145); TOTAL PROTEIN 5.4 G/DL (5.7-8.2)
[2023-04-22] MEDS: NYSTATIN 500,000U/5ML SUSP UDC SS SCH (12:33)
[2023-04-22] MEDS: hydroCHLOROthiazide 12.5 MG CAPSULE PO SCH (14:37)
[2023-04-22] MEDS ORDERED: HEPA500023 SQ (15:41)
[2023-04-22] MEDS ORDERED: PANT40IN4 IV (15:41)
[2023-04-22] MEDS ORDERED: HYDR0.5S8 IV (15:41)
[2023-04-22] MEDS ORDERED: ONDA4INJ4 IV (15:41)
[2023-04-22] MEDS ORDERED: ZOSY1SOL6 IV (15:41)
[2023-04-22] MEDS ORDERED: INSUHUMDS SC (15:41)
[2023-04-22] MEDS: HYDROMORPHONE HCL 0.5 MG/ 0.5 ML SYRINGE IV PRN (23:29)
== END 2023-04-22 23:44 | disposition other institution (70) | DRG 710 ==
LOC: M ED 09:06 → M SDC 12:51 → M PCU 12:53 → ENRESERV 15:02
PROVIDERS: ADMIT Surgery; ATTEND Surgery
PROC: 0FT40ZZ Resection of Gallbladder, Open Approach (ICD-10-PCS; 2023-04-20)
PROC: 0FJ44ZZ Inspection of Gallbladder, Percutaneous Endoscopic Approach (ICD-10-PCS; principal; 2023-04-20 09:00)
DX: A41.9 Sepsis, unspecified organism (principal); J96.01 Acute respiratory failure with hypoxia; E87.20 Acidosis, unspecified; E66.01 Morbid (severe) obesity due to excess calories; K81.2 Acute cholecystitis with chronic cholecystitis; I10 Essential (primary) hypertension; K21.9 Gastro-esophageal reflux disease without esophagitis; K91.81 Other intraoperative complications of digestive system; J98.11 Atelectasis; E78.5 Hyperlipidemia, unspecified; R65.20 Severe sepsis without septic shock; E11.42 Type 2 diabetes mellitus with diabetic polyneuropathy; Z96.651 Presence of right artificial knee joint; Z79.84 Long term (current) use of oral hypoglycemic drugs; Z79.899 Other long term (current) drug therapy; Z91.018 Allergy to other foods; Z20.822 Contact with and (suspected) exposure to COVID-19; Z53.31 Laparoscopic surgical procedure converted to open procedure

== ENCOUNTER → 2023-12-19 | Outpatient (CLI) | payer BC ==
[~2023-12-19] MED LIST changes: +HEPA500023 SQ; +HYDR0.5S8 IV; +INSUHUMDS SC; +JARD1TAB3; +LISI20TA35 PO; +METF500T13; +OMEP-173; +ONDA4INJ4 IV; +PANT40IN4 IV; +PIPE4.5F IV
== END ==
LOC: M PLAIMG 13:40
PROVIDERS: ATTEND Student in an Organized Health Care Education/Training Program
DX: K91.81 Other intraoperative complications of digestive system (principal)